=== PATIENT | female | born 1955 | race Caucasian/White ===

== ENCOUNTER 2019-09-15 00:38 | Inpatient (IN) | payer OTHER ==
[~2019-09-15] VITALS: Ht 167.6 cm; Wt 100.4 kg
[2019-09-15] VITALS (11 sets, daily range): BP systolic 114–175; BP diastolic 42–99; Ht 167.6 cm; Wt 100.4 kg
[2019-09-15 02:17] LABS: BASOPHIL % 0.2 % (0-2)
[2019-09-15 02:19] LABS: RED CELL DISTRIBUTION WIDTH 23.4 % (11.5-14.5)
[2019-09-15 02:21] LABS: PLATELET COUNT 39 x10^3mcL (130-400)
[2019-09-15 02:47] LABS: ALBUMIN 2.9 g/dL (3.4-5.0); BILIRUBIN TOTAL 0.7 mg/dL (0.20-1.00); CALCIUM 8.7 mg/dL (8.5-10.1); CARBON DIOXIDE 24.4 mmol/L (21-32); CHLORIDE SERUM 101 mmol/L (98-107); CREATININE SERUM 0.8 mg/dL (0.6-1.0); GFR1 > 60 mL/min; GLUCOSE SERUM 112 mg/dL (74-106); SODIUM SERUM 137 mmol/L (136-145); TOTAL PROTEIN, SERUM 7.1 g/dL (6.4-8.2)
[2019-09-15 02:48] LABS: ALKALINE PHOSPHATASE 54 U/L (46-116); ALT/SGPT 15 U/L (14-59); AST/SGOT 12 U/L (15-37)
[2019-09-15 02:49] LABS: POTASSIUM SERUM 2.7 mmol/L (3.5-5.1)
[2019-09-15] MEDS ORDERED: ELIQUIS2.5 MG PO (03:09)
[2019-09-15] MEDS ORDERED: TOPROL XL25 MG PO (03:09)
[2019-09-15] MEDS ORDERED: PRA40 PO (03:10)
[2019-09-15] MEDS ORDERED: COLACE100 MG PO (03:10)
[2019-09-15] MEDS ORDERED: XAN25 PO (03:11)
[2019-09-15] MEDS ORDERED: LOTREL1 CA2 PO (03:12)
[2019-09-15] MEDS ORDERED: NEXIUM40 MG PO (03:13)
[2019-09-15 06:17] LABS: UA SPECIFIC GRAVITY <=1.005 (1.005-1.035); microscopic required? YES; urine erythrocyte NEGATIVE (NEGATIVE)
[2019-09-16 05:11] VITALS: BP 113/60
[2019-09-16 07:42] LABS: SODIUM SERUM 141 mmol/L (136-145)
[2019-09-16 07:44] LABS: POTASSIUM SERUM 2.8 mmol/L (3.5-5.1)
[2019-09-16 07:45] LABS: CALCIUM 8.4 mg/dL (8.5-10.1); CHLORIDE SERUM 100 mmol/L (98-107); CREATININE SERUM 0.8 mg/dL (0.6-1.0); GFR1 > 60 mL/min; GLUCOSE SERUM 164 mg/dL (74-106); MAGNESIUM 1.3 mg/dL (1.8-2.4)
[2019-09-16 07:46] LABS: CARBON DIOXIDE 26 mmol/L (21-32)
[2019-09-16 07:58] LABS: RED CELL DISTRIBUTION WIDTH 23.4 % (11.5-14.5)
[2019-09-16 08:20] VITALS: BP 93/63
[2019-09-16 10:49] LABS: SEGMENTED NEUTROPHILS 32 % (37-75)
[2019-09-16 10:50] LABS: ATYPICAL LYMPH 0 %; BAND NEUTROPHIL 0 % (0-10); BASOPHIL 0 % (0-2); METAMYELOCTE 0 % (0-2); MONOCYTE 8 % (0-7); ovalocyte/elliptocyte 3+; rbc morphology (normal/abnorm) ABNORMAL (NORMAL)
[2019-09-16 10:51] LABS: PATH REVIEW for HEMA NO; PLATELET COUNT 41 x10^3mcL (130-400); PLATELET MORPHOLOGY PLATELETS DECREASED
[2019-09-16 12:48] VITALS: BP 136/95
[2019-09-16 16:45] VITALS: BP 121/70
[2019-09-16 21:00] VITALS: BP 111/68
[2019-09-17 06:11] VITALS: BP 112/62
[2019-09-17 07:14] LABS: PLATELET COUNT 52 x10^3mcL (130-400)
[2019-09-17 07:42] LABS: CARBON DIOXIDE 25.7 mmol/L (21-32); CHLORIDE SERUM 104 mmol/L (98-107); CREATININE SERUM 0.9 mg/dL (0.6-1.0); GFR1 > 60 mL/min; GLUCOSE SERUM 122 mg/dL (74-106); POTASSIUM SERUM 3.6 mmol/L (3.5-5.1); SODIUM SERUM 141 mmol/L (136-145)
[2019-09-17 08:13] LABS: BAND NEUTROPHIL 5 % (0-10); BASOPHIL 0 % (0-2); MONOCYTE 7 % (0-7); SEGMENTED NEUTROPHILS 82 % (37-75)
[2019-09-17 08:15] LABS: ovalocyte/elliptocyte 3+; rbc morphology (normal/abnorm) ABNORMAL (NORMAL)
[2019-09-17 08:16] LABS: PLATELET MORPHOLOGY PLATELETS DECREASED
[2019-09-17 08:17] VITALS: BP 139/70
[2019-09-17 08:18] LABS: ALKALINE PHOSPHATASE 57 U/L (46-116); ALT/SGPT 12 U/L (14-59); AST/SGOT 13 U/L (15-37); BILIRUBIN DIRECT 0.18 mg/dL (0.0-0.2); BILIRUBIN TOTAL 0.49 mg/dL (0.20-1.00); TOTAL PROTEIN, SERUM 7.5 g/dL (6.4-8.2)
[2019-09-17 13:16] VITALS: BP 130/53
[2019-09-17 17:15] VITALS: BP 115/61
[2019-09-17 21:52] VITALS: BP 140/65
[2019-09-18 05:07] VITALS: BP 122/59
[2019-09-18 07:14] LABS: CALCIUM 8.5 mg/dL (8.5-10.1); CARBON DIOXIDE 25.5 mmol/L (21-32); CHLORIDE SERUM 104 mmol/L (98-107); CREATININE SERUM 0.9 mg/dL (0.6-1.0); GFR1 > 60 mL/min; GLUCOSE SERUM 98 mg/dL (74-106); POTASSIUM SERUM 3.1 mmol/L (3.5-5.1); SODIUM SERUM 140 mmol/L (136-145)
[2019-09-18 08:20] VITALS: BP 138/75
[2019-09-18 08:21] LABS: RED CELL DISTRIBUTION WIDTH 24.4 % (11.5-14.5)
[2019-09-18 10:20] LABS: ATYPICAL LYMPH 1 %; BAND NEUTROPHIL 6 % (0-10); BASOPHIL 2 % (0-2); MONOCYTE 7 % (0-7); SEGMENTED NEUTROPHILS 44 % (37-75)
[2019-09-18 10:21] LABS: PLATELET MORPHOLOGY PLATELETS DECREASED; rbc morphology (normal/abnorm) ABNORMAL (NORMAL)
[2019-09-18 11:21] LABS: PLATELET COUNT 37 x10^3mcL (130-400)
[2019-09-18 13:10] VITALS: BP 112/51
[2019-09-18 17:30] VITALS: BP 121/61
[2019-09-18 21:04] VITALS: BP 134/60
[2019-09-19 05:37] VITALS: BP 131/62
[2019-09-19 07:00] LABS: CALCIUM 8.6 mg/dL (8.5-10.1); CARBON DIOXIDE 27.6 mmol/L (21-32); CHLORIDE SERUM 109 mmol/L (98-107); CREATININE SERUM 0.8 mg/dL (0.6-1.0); GFR1 > 60 mL/min; GLUCOSE SERUM 155 mg/dL (74-106); POTASSIUM SERUM 4.3 mmol/L (3.5-5.1); SODIUM SERUM 144 mmol/L (136-145)
[2019-09-19 07:59] LABS: RED CELL DISTRIBUTION WIDTH 23.9 % (11.5-14.5)
[2019-09-19 08:00] LABS: PLATELET COUNT 28 x10^3mcL (130-400)
[2019-09-19 08:13] LABS: SEGMENTED NEUTROPHILS 64 % (37-75)
[2019-09-19 08:14] LABS: BASOPHIL 1 % (0-2); MONOCYTE 5 % (0-7)
[2019-09-19 08:26] LABS: rbc morphology (normal/abnorm) ABNORMAL (NORMAL)
[2019-09-19 08:32] VITALS: BP 141/54
[2019-09-19 13:32] VITALS: BP 134/64
[2019-09-19 16:41] VITALS: BP 130/59
[2019-09-19 22:05] VITALS: BP 125/68
[2019-09-20 05:58] VITALS: BP 123/57
[2019-09-20 09:06] VITALS: BP 131/53
[2019-09-20 12:22] VITALS: BP 110/65
[2019-09-20 16:46] VITALS: BP 141/60
[2019-09-20 20:16] VITALS: BP 129/59
[2019-09-21 05:24] VITALS: BP 141/63
[2019-09-21 06:43] LABS: CHLORIDE SERUM 108 mmol/L (98-107); SODIUM SERUM 143 mmol/L (136-145)
[2019-09-21 06:44] LABS: CALCIUM 8.8 mg/dL (8.5-10.1); CARBON DIOXIDE 26.4 mmol/L (21-32); CREATININE SERUM 0.9 mg/dL (0.6-1.0); GFR1 > 60 mL/min; GLUCOSE SERUM 125 mg/dL (74-106)
[2019-09-21 08:03] LABS: RED CELL DISTRIBUTION WIDTH 24.5 % (11.5-14.5)
[2019-09-21 09:14] VITALS: BP 122/59
[2019-09-21 11:36] LABS: BAND NEUTROPHIL 4 % (0-10); BASOPHIL 0 % (0-2); MONOCYTE 10 % (0-7); SEGMENTED NEUTROPHILS 63 % (37-75)
[2019-09-21 11:37] LABS: PLATELET MORPHOLOGY PLATELETS DECREASED; rbc morphology (normal/abnorm) ABNORMAL (NORMAL)
[2019-09-21 12:22] LABS: PLATELET COUNT 31 x10^3mcL (130-400)
[2019-09-21 13:30] VITALS: BP 141/63
[2019-09-21 13:42] VITALS: BP 140/62
== END 2019-09-21 15:25 | disposition home or self-care (01) | DRG 871 ==
LOC: ED 00:38 → DU 03:58 → MU 03:58 → DU 05:50
PROVIDERS: Emergency Medicine; Internal Medicine; Internal Medicine Pulmonary Disease; ADMIT Internal Medicine Pulmonary Disease
DX: A41.9 Sepsis, unspecified organism (principal); J18.9 Pneumonia, unspecified organism; J96.01 Acute respiratory failure with hypoxia; D61.818 Other pancytopenia; I48.91 Unspecified atrial fibrillation; M34.9 Systemic sclerosis, unspecified; D46.Z Other myelodysplastic syndromes; D69.59 Other secondary thrombocytopenia; E87.6 Hypokalemia; Z68.35 Body mass index [BMI] 35.0-35.9, adult; Z79.01 Long term (current) use of anticoagulants
CPT/HCPCS: 36600; 83880; 87804; G0378; J0694; J0696; J1940; J2920; J2930; J3480; J3490; J7030; J7040; J7512; J7620; P9016; Q0092; Q9967